=== PATIENT | female | born 1950 | race Caucasian/White ===

== ENCOUNTER 2020-02-08 11:15 | Outpatient (CLI) | payer MEDICARE, MEDICAID, SELFPAY ==
--- NOTE | 2020-02-08 11:28 | XR_ITS ---
WS: [id number] KUB, 02/08/2020 Clinical Data: ABDOMINAL PAIN RIGHT LOWER QUADRANT, RIGHT UPPER QUADRANT Comparison: None. Findings: No abnormal intraabdominal masses or calcifications are seen. There is no dilatated small bowel or ev idence of obstruction. The bladder appears to be compressed by a pelvic mass. There is degenerative change of the lumbar spi ne with a levoscoliosis. XR/XR KUB [id number] Impression: 1. Probable pelvic mass and recommend pelvic ultrasound. 2. Negative for intra-abdominal abnormalities.
== END 2020-02-08 11:16 | disposition home or self-care (01) ==
PROVIDERS: Family Provider Nurse Practitioner Family; PCP Nurse Practitioner Family; Visit Provider Nurse Practitioner Family
DX: R10.31 Right lower quadrant pain (principal); R10.11 Right upper quadrant pain
CPT/HCPCS: 74018

== ENCOUNTER → 2022-04-09 14:00 | Outpatient (BNVA) | payer MEDICARE, MEDICAID, SELFPAY | PROVIDERS: Family Provider Nurse Practitioner Family; PCP Nurse Practitioner Family; Visit Provider Clinical Nurse Specialist Adult Health | DX: I10 Essential (primary) hypertension (principal); E11.9 Type 2 diabetes mellitus without complications; E78.5 Hyperlipidemia, unspecified; R32 Unspecified urinary incontinence | CPT/HCPCS: 85025 ==

== ENCOUNTER → 2022-04-12 11:35 | Outpatient (BNVA) | payer MEDICARE, MEDICAID, SELFPAY | PROVIDERS: Family Provider Nurse Practitioner Family; PCP Clinical Nurse Specialist Adult Health; Visit Provider Clinical Nurse Specialist Adult Health | DX: E11.9 Type 2 diabetes mellitus without complications (principal); E78.5 Hyperlipidemia, unspecified; I10 Essential (primary) hypertension | CPT/HCPCS: 80053; 80061; 83036; 85025 ==

== ENCOUNTER → 2023-07-22 10:57 | Outpatient (BNVA) | payer MEDICARE, MEDICAID, SELFPAY | PROVIDERS: Family Provider Nurse Practitioner Family; PCP Clinical Nurse Specialist Adult Health; Visit Provider Clinical Nurse Specialist Adult Health | DX: E11.9 Type 2 diabetes mellitus without complications (principal) | CPT/HCPCS: 80053; 80061; 83036; 85025 ==

== ENCOUNTER → 2023-12-02 15:52 | Outpatient (BNVA) | payer MEDICAID, SELFPAY | PROVIDERS: Family Provider Nurse Practitioner Family; PCP Clinical Nurse Specialist Adult Health; Visit Provider Clinical Nurse Specialist Adult Health | DX: R32 Unspecified urinary incontinence (principal); I10 Essential (primary) hypertension | CPT/HCPCS: 80053; 81000; 83880; 85025; 87077; 87086; 87184 ==

== ENCOUNTER → 2024-01-07 15:06 | Outpatient (BNVA) | payer MEDICARE, MEDICAID, SELFPAY | PROVIDERS: Family Provider Nurse Practitioner Family; PCP Clinical Nurse Specialist Adult Health; Visit Provider Dermatology | DX: L72.11 Pilar cyst (principal); L72.0 Epidermal cyst; L81.4 Other melanin hyperpigmentation; L82.1 Other seborrheic keratosis | CPT/HCPCS: 99203 ==

== ENCOUNTER → 2024-03-03 12:59 | Outpatient (BNVA) | payer MEDICARE, MEDICAID, SELFPAY | PROVIDERS: Family Provider Nurse Practitioner Family; PCP Clinical Nurse Specialist Adult Health; Visit Provider Clinical Nurse Specialist Adult Health | DX: E11.9 Type 2 diabetes mellitus without complications (principal); N39.0 Urinary tract infection, site not specified; E78.5 Hyperlipidemia, unspecified | CPT/HCPCS: 80053; 80061; 81000; 83036; 85025 ==

== ENCOUNTER → 2024-03-04 08:18 | Outpatient (BNVA) | payer MEDICARE, MEDICAID, SELFPAY | PROVIDERS: Family Provider Nurse Practitioner Family; PCP Clinical Nurse Specialist Adult Health; Visit Provider Clinical Nurse Specialist Adult Health | DX: N39.0 Urinary tract infection, site not specified (principal) | CPT/HCPCS: 87086 ==

== ENCOUNTER → 2024-03-18 14:35 | Outpatient (BNVA) | payer MEDICARE, MEDICAID, SELFPAY | PROVIDERS: Family Provider Nurse Practitioner Family; PCP Clinical Nurse Specialist Adult Health; Visit Provider Dermatology | DX: D48.5 Neoplasm of uncertain behavior of skin (principal) | CPT/HCPCS: 11423; 13121 ==

== ENCOUNTER → 2024-06-02 15:10 | Outpatient (BNVA) | payer MEDICARE, MEDICAID, SELFPAY | PROVIDERS: Family Provider Nurse Practitioner Family; PCP Clinical Nurse Specialist Adult Health; Visit Provider Clinical Nurse Specialist Adult Health | DX: E11.9 Type 2 diabetes mellitus without complications (principal) | CPT/HCPCS: 85025 ==

== ENCOUNTER → 2024-07-29 12:23 | Outpatient (BNVA) | payer MEDICARE, MEDICAID, SELFPAY | PROVIDERS: Family Provider Nurse Practitioner Family; PCP Family Medicine; Visit Provider Family Medicine | DX: E11.9 Type 2 diabetes mellitus without complications (principal); I10 Essential (primary) hypertension | CPT/HCPCS: 80053; 83036; 83880; 84443; 84484; 85025; 85379; 86140 ==

== ENCOUNTER 2024-08-04 13:42 | Outpatient (CLI) | payer MEDICARE, MEDICAID, SELFPAY ==
--- NOTE | 2024-08-04 14:00 | CT_ITS ---
WS: [id number] CT CHEST ANGIOGRAPHY WITH REFORMATS HISTORY: hypoxia/ elevated D-dimer TECHNIQUE: Contiguous axial images are obtained through the chest during arterial injection of intrav enous contrast. Images are reconstructed to evaluate the pulmonary arteries. MIP imaging also reviewe d. All CT scans at [facility] use at least one of these dose optimization techniques: automat ed exposure control; mA and/or kV adjustment per patient size (includes targeted exams where dose is matched to clinical indication); or iterative reconstruction. CONTRAST: Omnipaque 350; 100 mL IV. DLP: 328.49 mGy.cm COMPARISON: None available. Good opacification of the pulmonary arteries. No pulmonary embolism identified. Normal size pulmonary artery. Advanced atherosclerotic plaque in a nondilated thoracic aorta. Calcified plaque with intima l thickening. Very mild LEFT heart enlargement. No RIGHT heart strain. No pericardial or pleural effu sions. Lung volumes are decreased due to poor inspiration. Focal increased opacification in the RIGHT middle lobe. No mass. The opacification in the RIGHT middle lobe is probably pneumonia. Overall mild inters titial thickening. Indeterminate but prominent mediastinal and hilar lymph nodes. RIGHT hilar lymph nodes measure up to 18 mm. No chest wall abnormality. No adrenal mass. Visualized upper abdomen is negative. Moderate LEFT curvature thoracic spine. CT/CT angio chest PE protcl [id number] IMPRESSION: 1. No pulmonary embolism. 2. Increased opacification RIGHT middle lobe. Most likely pneumonia. Recommend follow-up CT evaluation of the chest following treatment. 3. Overall diffuse interstitial thickening and. In part this is due to poor in spiratory effort but superimposed mild pulmonary edema may appear similar. 4. Indeterminate, probably reactive mediastinal and hilar lymph nodes. Lymph n odes can be evaluated during short-term follow-up to reevaluate the RIGHT middl e lobe pneumonia. Recommend follow-up chest CT with IV contrast after treatment in 6 to 8 weeks.
[2024-08-04] MEDS: iohexol 350 mg/mL 500 mL Btl (per mL) IV (14:29)
== END 2024-08-04 13:43 | disposition home or self-care (01) ==
LOC: RAD 13:44
PROVIDERS: Family Provider Nurse Practitioner Family; PCP Family Medicine; Visit Provider Family Medicine
DX: R91.8 Other nonspecific abnormal finding of lung field (principal); R59.0 Localized enlarged lymph nodes; R09.02 Hypoxemia
CPT/HCPCS: 71275

== ENCOUNTER 2024-08-05 14:53 | Emergency (ER) | payer MEDICARE, MEDICAID, SELFPAY ==
[2024-08-05] VITALS (9 sets, daily range): BP systolic 144–174; BP diastolic 70–92; PULSE 72–116; RESP 16–22; O2SAT 91–96; BMI 34.9
--- NOTE | 2024-08-05 15:04 | CTR_ITS ---
PROCEDURE INFORMATION: Exam: CTA Head With Contrast, Arteriography Exam date and time: 08/05/2024 3:46 PM Age: 73 years old Clinical indication: Weakness; Additional info: Fall/unk if hit head/hx of strokes TECHNIQUE: Imaging protocol: Computed tomographic angiography of the head with contrast. Exam focused on the arteries. 3D rendering (Not supervised by radiologist): MIP and/or 3D reconstructed images were created by the technologist. Radiation optimization: All CT scans at this facility use at least one of these dose optimization techniques: automated exposure control; mA and/or kV adjustment per patient size (includes targeted exams where dose is matched to clinical indication); or iterative reconstruction. Contrast material: OMNIPAQUE 350; Contrast volume: 100 ml; Contrast route: INTRAVENOUS (IV); COMPARISON: CT head wo con* [id number] 08/05/2024 3:36 PM RADIATION DOSE METRICS: Total DLP (mGy-cm): 451.22 FINDINGS: ANTERIOR CIRCULATION: Right internal carotid artery: Intracranial segment is patent with no significant stenosis. No aneurysm. Atherosclerotic calcification of the right carotid siphon. Right middle cerebral artery: No occlusion or significant stenosis. No aneurysm. Right anterior cerebral artery: No occlusion or significant stenosis. No aneurysm. Left internal carotid artery: Intracranial segment is patent with no significant stenosis. No aneurysm. Atherosclerotic calcification of the left carotid siphon. Left middle cerebral artery: No occlusion or significant stenosis. No aneurysm. Left anterior cerebral artery: No occlusion or significant stenosis. No aneurysm. POSTERIOR CIRCULATION: Right vertebral artery: No occlusion or significant stenosis. No aneurysm. Left vertebral artery: No occlusion or significant stenosis. No aneurysm. Basilar artery: No occlusion or significant stenosis. No aneurysm. Right posterior cerebral artery: No occlusion or significant stenosis. No aneurysm. Left posterior cerebral artery: No occlusion or significant stenosis. No aneurysm. Brain: No intracranial hemorrhage. There is global parenchymal volume loss. Periventricular white matter hypoattenuation is nonspecific but most likely due to small vessel disease. No evidence of acute territorial infarct or cerebral edema. No mass effect or midline shift. Remote left MCA territory cortical infarct. Cerebral ventricles: Prominent ventricles likely secondary to volume loss. Bones/joints: Unremarkable. No acute fracture. Soft tissues: Unremarkable. PROCEDURE INFORMATION: Exam: CTA Neck With Contrast Exam date and time: 08/05/2024 3:46 PM Age: 73 years old Clinical indication: Weakness; Additional info: Fall/unk if hit head/hx of strokes TECHNIQUE: Imaging protocol: Computed tomographic angiography of the neck with contrast. Exam focused on the cervical segments of the vasculature. 3D rendering (Not supervised by radiologist): MIP and/or 3D reconstructed images were created by the technologist. Radiation optimization: All CT scans at this facility use at least one of these dose optimization techniques: automated exposure control; mA and/or kV adjustment per patient size (includes targeted exams where dose is matched to clinical indication); or iterative reconstruction. Contrast material: OMNIPAQUE 350; Contrast volume: 100 ml; Contrast route: INTRAVENOUS (IV); COMPARISON: CT angio chest PE protcl [id number] 08/04/2024 2:16 PM RADIATION DOSE METRICS: Total DLP (mGy-cm): 451.22 FINDINGS: Right common carotid artery: No stenosis. No dissection or occlusion. Right internal carotid artery: Calcified plaque in the proximal right ICA with mild stenosis. Right external carotid artery: No occlusion or stenosis of the origin. Left common carotid artery: No stenosis. No dissection or occlusion. Left internal carotid artery: Extensive calcified plaque in the proximal left ICA with stenosis most prominent in the distal bulb region, greater than 70%. Left external carotid artery: No occlusion or stenosis of the origin. Right vertebral artery: No stenosis. No dissection or occlusion. Left vertebral artery: No stenosis. No dissection or occlusion. Soft tissues: Normal. No significant soft tissue swelling. Bones/joints: [place] rightward mid cervical curvature. Other findings: Emphysema. CT/CT angio headneck* [id number] IMPRESSION: No acute intracranial findings. IMPRESSION: 1. Extensive calcified plaque in the proximal left ICA with stenosis most prominent in the distal bulb region, greater than 70%. 2. Calcified plaque in the proximal right ICA with mild stenosis. REFERENCES: NASCET CRITERIA. The degree of stenosis in the cervical segment of the internal carotid artery is based on NASCET criteria. Normal is no stenosis. Mild is less than 50% stenosis. Moderate is 50-69% stenosis. Severe is 70% to 99% stenosis. Total occlusion is no detectable patent lumen.
--- NOTE | 2024-08-05 15:05 | XR_ITS ---
WS: [id number] Portable AP upright chest, 08/05/2024 Clinical Data: weak, nausea Comparison: Portable chest, 03/31/2007. Findings: No nodules, masses or effusions are seen. The heart is normal. The pulmonary vascularity is not increased. No pneumonia or pneumothorax is seen. The aortic arch and descending thoracic aorta s how tortuosity and calcification. There is a levoscoliosis of the thoracic spine. XR/XR chest 1V portable [id number] Impression: Atherosclerosis.
--- NOTE | 2024-08-05 15:07 | ECG_ITS ---
[employer] Test Date: 2024-08-05 Pat Name: Bettina Darden Department: Room: Gender: Female Nip Wrapper: : 1950 Requested By: Viral Ryan Order Number: [id number] Vanda MD: Luzmaria Arvizu M.D. Measurements Intervals [place] Rate: 97 P: 66 SC: 174 QRS: 60 QRSD: 76 T: -3 QT: 334 QTc: 424 Interpretive Statements SINUS RHYTHM LOW QRS VOLTAGE IN PRECORDIAL LEADS [QRS DEFLECTION < 1.0 mV IN CHEST LEADS] NONSPECIFIC T-WAVE ABNORMALITY No previous ECG available for comparison Electronically Signed On 08-06-2024 21:21:20 [employer]OCIATE JAVA DEVELOPER by Luzmaria Arvizu M.D. [email or web address]
--- NOTE | 2024-08-05 15:07 | W.ED.SOB ---
HPI - SOB/Dyspnea General: Chief Complaint: Shortness of Breath/Dyspnea Stated Complaint: Fall- Gen weakness Time Seen by Provider: 08/05/24 14:56 Source: patient and EMS Mode of arrival: EMS Limitations: other (Patient poor historian) History of Present Illness: HPI Narrative: Patient is a 73-year-old female presenting from home for generalized weakness reportedly today. Patient is a poor historian overall, EMS is primary historian in this case. Patient reportedly was seen by [facility] found her to be next to the recliner on the ground, unknown exactly how long she was down though it is thought to be anywhere between 30 minutes and an hour. Patient is alert and oriented to herself and place, baseline she is reportedly disoriented to time. EMS notes patient has a history of multiple strokes, all of been recently. They also state patient was seen here yesterday to rule out pulmonary embolism, however there are no reports of this. She is on 3 L O2 at this time, and this is stated to be because of her PE workup yesterday. I do see clopidogrel in her med list as well as aspirin. Patient has no complaints at this time, however EMS stated that patient did have a couple episodes of vomiting with them, and there is an odor of vomit at this time in the emergency department. However there are no focal neurological deficits that are appreciated at this time, patient did not have any complaints of chest pain, shortness of breath, or headache/neurological changes. She states she does remember falling, did not hit her head, says that she was just too weak to get up. Review of systems overall however is unobtainable as she is poor historian. Patient has history of hypertension, hyperlipidemia, ischemic strokes, and type 2 diabetes. Onset (ago): hour(s) Known history of: diabetes Associated symptoms: Reports nausea and vomiting; Deny abdominal pain, chest pain, dizziness, fever(s) or palpitations Treatment prior to arrival: oxygen Related Data Home Medications Medication Instructions Recorded Confirmed acetaminophen 500 mg tablet 500 mg PO Q6H PRN Pain 04/09/22 08/05/24 (Tylenol Extra Strength) ascorbate calcium (vitamin C) 500 500 mg PO DAILY 04/09/22 08/05/24 mg tablet aspirin 81 mg tablet,delayed 81 mg PO DAILY 04/09/22 08/05/24 release (Adult Aspirin Regimen) cholecalciferol (vitamin D3) 10 10 mcg PO DAILY 04/09/22 08/05/24 mcg (400 unit) capsule vitamin E (dl, acetate) 45 mg (100 45 mg PO DAILY 04/09/22 08/05/24 unit) capsule Previous Rx's Medication Instructions Recorded diaper,brief,adult,disposable #120 ea 12/02/23 [place] [facility] [place] 4 hours on, 2 hours off #1 ea 12/06/23 Acapella flutter valve #1 ea 03/03/24 Oxygen at 4L per NC #1 ea 07/29/24 amlodipine 5 mg tablet 5 mg PO DAILY #30 tabs 07/29/24 atorvastatin 10 mg tablet 10 mg PO DAILY #30 tabs 07/29/24 clopidogrel 75 mg tablet 75 mg PO DAILY #30 tabs 07/29/24 hydrochlorothiazide 12.5 mg capsule 12.5 mg PO DAILY #30 caps 07/29/24 irbesartan 75 mg tablet 75 mg PO DAILY #30 tabs 07/29/24 metformin 500 mg tablet 500 mg PO DAILY #30 tabs 07/29/24 cefdinir 300 mg capsule 300 mg PO BID 10 days #20 caps 08/05/24 Allergies Allergy/AdvReac Type Severity Reaction Status Date / Time penicillin V Allergy Mild adr-hives Verified 06/02/24 14:39 Review of Systems General: Reports: Other (Review of systems limited from patient's poor history) Const: Reports: fatigue and malaise; Denies: fever(s) Card: Denies: chest pain or palpitations Resp: Denies: dyspnea GI: Reports: nausea and vomiting; Denies: abdominal pain or diarrhea Musc: Reports: muscle weakness; Denies: neck pain or back pain Neuro: Denies: headache(s), numbness in extremities, sensory changes, dizziness, Slurred speech present or seizure-like activity PFSH ED PFSH: Medical History Hypoventilation associated with obesity Hx of arterial ischemic stroke Urinary incontinence Scoliosis Type 2 diabetes mellitus Hyperlipidemia Essential (primary) hypertension Surgical History History of cholecystectomy Family History Denies family history of Clotting disorder Anesthesia complication Bleeding disorder Social History Smoking and tobacco/nicotine status: unknown if used tobacco/nicotine Alcohol intake: never Substance/Drug Use: never Physical Exam Const: COMMON NORMALS: no acute distress and no limitations GENERAL APPEARANCE: cooperative, comfortable and well developed ORIENTATION/CONSCIOUSNESS: Yes awake, Yes oriented to person and Yes oriented to place OTHER: Foul smell of emesis at time of examination, no focal neurological deficit HENMT: COMMON NORMALS: normocephalic, atraumatic and hearing grossly normal bilaterally HEAD & SCALP: normocephalic and atraumatic FACE & SINUS: normal facial exam OTHER: Face is symmetric, no facial droop Eye: COMMON NORMALS: Equal, round and reactive pupils present, EOMs intact bilaterally and conjunctivae normal CONJUNCTIVA: Yes conjunctivae normal PUPIL: Yes Equal, round and reactive pupils present OTHER: Eyes are tracking midline Neck/C-Spine: COMMON NORMALS: full ROM, supple and no JVD Resp: COMMON NORMALS: normal respiratory effort, No retractions, No use of accessory muscles and clear to auscultation bilaterally AUSCULTATION: clear to auscultation bilaterally Cardio: COMMON NORMALS: no JVD, regular rate, regular rhythm, No clicks present (Cardio), No murmurs present (Cardio) and No rub (Cardio) RATE: regular rate RHYTHM: regular rhythm GI: COMMON NORMALS: Normal to inspection, nondistended, normoactive bowel sounds present, Soft to palpation and non-tender INSPECTION: Yes central obesity AUSCULTATION: Yes normoactive bowel sounds PALPATION: Yes Soft to palpation RECTAL EXAM: deferred Extremity: COMMON NORMALS: normal to inspection, full ROM and capillary refill normal Neuro: COMMON NORMALS: CN's II-XII intact bilaterally, moves all extremities, no focal motor deficits and no sensory deficits noted SENSORIUM/ORIENTATION: Yes oriented to person, Yes oriented to place and Yes Orientation impaired (To time, chronic) MOTOR EXAM: 5/5 motor strength present throughout, Pronator motor function not present, no tremor noted, no asterixis, Motor fasciculations not present and Normal motor muscle tone present throughout Psych: COMMON NORMALS: mental status grossly normal and Normal thought process present THOUGHT PROCESS: Normal thought process present Skin: COMMON NORMALS: no rashes or lesions noted GENERAL SKIN EXAM: no rashes or lesions noted Course Vital Signs: Vital signs: Vital Signs Pulse Rate 88 08/05/24 19:37 Respiratory Rate 18 08/05/24 19:37 Blood Pressure 151/77 08/05/24 19:37 Pulse Oximetry 94 08/05/24 19:37 Oxygen Delivery Me thod Nasal Cannula 08/05/24 19:37 Oxygen Flow Rate 4 08/05/24 19:37 MDM - SOB/Dyspnea Medical Decision Making This patient brought in by ambulance after home health aide had called for patient being down next to recliner, reported downtime was between 30 minutes and an hour. Upon reviewing patient's charts, she had a CTA of her chest yesterday to rule out a PE, potential there was signs of pneumonia. She also saw her primary care a week ago and was started on 4 L of oxygen, due to hypoxia of unknown etiology. She presented here with a few episodes of vomiting with EMS, and had to give her Zofran through an IV. Her baseline troponin was elevated, her repeat was mildly decreased from this. She had a 5th generation troponin level drawn a week ago that was also elevated. She did not seem fluid overloaded on exam, did have an elevated BNP with primary care. She had a history of strokes, here a CT and CTA was obtained that did not demonstrate any acute bleed or thrombus, respectively. Chest x-ray showing atherosclerosis and no focal pneumonia. Urinalysis showed potentially a sign of infection that could explain her increased weakness, rest of her lab work baseline compared to prior. She has been on 3 to 4 L O2 here throughout the entirety of her stay, I spoke with hospitalist who states that no need for admission at this time with her being baseline with her breathing and lab workup. She has been at baseline mentation, is overall poor historian, and did denied to me any injuries with the fall, stating she just pulled herself to the ground. Her weakness could be explained by her urinalysis we will treat with antibiotics and have her closely follow-up with primary care and return with any new or worsening. Discussed this case with Dr. Verdin here in the ER. Lab Data 08/05/24 15:24 08/05/24 15:24 Labs/Radiology: Radiology Impressions Head/Neck CTA 08/05/24 15:04 IMPRESSION: No acute intracranial findings. IMPRESSION: 1. Extensive calcified plaque in the proximal left ICA with stenosis most prominent in the distal bulb region, greater than 70%. 2. Calcified plaque in the proximal right ICA with mild stenosis. REFERENCES: NASCET CRITERIA. The degree of stenosis in the cervical segment of the internal carotid artery is based on NASCET criteria. Normal is no stenosis. Mild is less than 50% stenosis. Moderate is 50-69% stenosis. Severe is 70% to 99% stenosis. Total occlusion is no detectable patent lumen. Chest X-Ray 08/05/24 15:05 Impression: Atherosclerosis. Laboratory Results WBC 6.24 10^3/uL (3.29-11.43) 08/05/24 15: RBC 6.59 10^6/uL (3.85-5.65) H 08/05/24 15: Hgb 11.70 g/dL (11.27-16.99) 08/05/24 15: Hct 44.9 % (36-47) 08/05/24 15: MCV 68.1 fl (85-98) L 08/05/24 15: MCH 17.8 pg (27-33) L 08/05/24 15:24 MCHC 26.1 g/dL (30-55) L 08/05/24 15:24 RDW 19.6 % (12.1-15.1) H 08/05/24 15: Plt Count 327 10^3/cmm (157-399) 08/05/24 15: MPV 9.6 fL (7.4-10.4) 08/05/24 15: Neut % (Auto) 67.9 % 08/05/24: Lymph % (Auto) 15.9 % 08/05/24 15: [place] % (Auto) 14.9 % 08/05/24 15: Eos % (Auto) 0.2 % 08/05/24 15: Baso % (Auto) 0.8 % 08/05/24 15: Neut # (Auto) 4.24 10^3/uL (1.8-7.7) 11/13/24 15:24 Lymph # (Auto) 1.0 10^3/uL (0.8-4.8) 08/05/24 15:24 [place] # (Auto) 0.9 10^3/uL (0.2-0.9) 08/05/24 15:24 Eos # (Auto) 0.0 10^3/uL (0.0-0.8) 08/05/24 15:24 Baso # (Auto) 0.1 10^3/uL (0.0-0.1) 08/05/24 15:24 Nucleated RBC % (auto) 0 % 08/05/24 15:24 Nucleated RBCs # 0.0 /100WBC 08/05/24 15:24 Sodium 142 mmol/L (136-145) 08/05/24 15:24 Potassium 3.3 mmol/L (3.5-5.1) L 08/05/24 15:24 Chloride 99 mmol/L (98-107) 08/05/24 15:24 Carbon Dioxide 31 mmol/L (22-29) H 08/05/24 15:24 Anion Gap 15.3 (5-19) 08/05/24 15:24 BUN 19 mg/dL (8-23) 08/05/24 15:24 Creatinine 0.6 mg/dL (0.5-0.9) 08/05/24 15:24 GFR Calculation Not Reportable 08/05/24 15:24 Glucose 132 mg/dL (65-115) H 08/05/24 15:24 POC Glucose 131 mg/dL (70-110) H 08/05/24 16:09 Calculated Osmolality 298 mOsm/kg (285-295) H 08/05/24 15:24 Lactic Acid 1.5 mmol/L (0.5-2.2) 08/05/24 15:24 Calcium 9.3 mg/dL (8.5-10.5) 08/05/24 15:24 Total Bilirubin 0.9 mg/dL (0.15-1.2) 08/05/24 15:24 AST 28 U/L (0-32) 08/05/24 15:24 ALT 15 U/L (0-33) 08/05/24 15:24 Alkaline Phosphatase 113 U/L (35-105) H 08/05/24 15:24 Creatine Kinase 62 U/L (26-192) 08/05/24 15:24 Troponin T Baseline 94 ng/L (0-10) H 08/05/24 15:24 Troponin T 120 Minute 89.40 ng/L (0-10) H 08/05/24 17:22 Delta Troponin T -4.60 ABS# (0-10) L 08/05/24 17:22 Total Protein 7.0 g/dL (6.6-8.7) 08/05/24 15:24 Albumin 3.9 g/dL (3.5-5.2) 08/05/24 15:24 Globulin 3.1 g/dL (1.3-4.6) 08/05/24 15:24 Urine Color Yellow (Yellow) 08/05/24 16:19 Urine Appearance Clear (CLEAR) 08/05/24 16:19 Urine pH 6.0 (5-7) 08/05/24 16:19 Ur Specific [place] 1.027 (1.005-1.030) 08/05/24 16:19 Urine Protein 1+ (Negative) A 08/05/24 16:19 Urine Glucose (UA) Negative (Normal) 08/05/24 16:19 Urine Ketones Trace (Negative) 08/05/24 16:19 Urine Blood Negative (Negative) 08/05/24 16:19 Urine Nitrate Positive (Negative) A 08/05/24 16:19 Urine Bilirubin Negative (Negative) 08/05/24 16:19 Urine Urobilinogen 1.0 mg/dL (Negative) 08/05/24 16:19 Ur Leukocyte Esterase Trace (Negative) A 08/05/24 16:19 Urine RBC 0-2 /hpf (0-2) 08/05/24 16:19 Urine WBC 0-5 /hpf (0-5) 08/05/24 16:19 Ur Squamous Epith Cells 0-5 /hpf (0-5) 08/05/24 16:19 Amorphous Sediment Not Reportable 08/05/24 16:19 Urine Bacteria 4+ /hpf (NONE) H 08/05/24 16:19 Hyaline Casts 0.81 /lpf 08/05/24 16:19 All radiology interpretation(s) finalized by discharge EKG Data EKG 1: I personally reviewed and interpreted this EKG as follows: EKG Interpretation Date: 08/05/24 EKG interpretation time: 15:07 Prior EKG tracings: not available for review Interpretation: 1507: NSR. Rate 97. No STEMI. Reviewed with physician. EKG 2: I personally reviewed and interpreted this EKG as follows: EKG Interpretation Date: 08/05/24 EKG interpretation time: 17:07 Prior EKG tracings: available for review Interpretation: 1707: NSR. Rate 93. No change from prior. No STEMI. Reviewed with physician. Discharge Plan Discharge Patient Disposition: Home Clinical Impression: Hypoxia, Acute UTI (urinary tract infection) Condition: Stable Prescriptions: New cefdinir 300 mg capsule 300 mg PO BID 10 Days Qty: 20 0RF No Action amlodipine 5 mg tablet 5 mg PO DAILY Qty: 30 11RF atorvastatin 10 mg tablet 10 mg PO DAILY Qty: 30 11RF clopidogrel 75 mg tablet 75 mg PO DAILY Qty: 30 11RF hydrochlorothiazide 12.5 mg capsule 12.5 mg PO DAILY Qty: 30 11RF irbesartan 75 mg tablet 75 mg PO DAILY Qty: 30 11RF metformin 500 mg tablet 500 mg PO DAILY Qty: 30 11RF (DME) Oxygen at 4L per NC See Rx Instructions .Route .MEDSUPPLY Qty: 1 0RF Rx Instructions: As directed aspirin [Adult Aspirin Regimen] 81 mg tablet,delayed release (DR/EC) 81 mg PO DAILY acetaminophen [Tylenol Extra Strength] 500 mg tablet 500 mg PO Q6H PRN (Reason: Pain) ascorbate calcium (vitamin C) 500 mg tablet 500 mg PO DAILY cholecalciferol (vitamin D3) 10 mcg (400 unit) capsule 10 mcg PO DAILY vitamin E (dl, acetate) 45 mg (100 unit) capsule 45 mg PO DAILY (DME) Depend Easy Fit Undergarments Misc See Rx Instructions .Route Qty: 120 5RF Rx Instructions: As directed (DME) Acapella flutter valve See Rx Instructions .Route .MEDSUPPLY Qty: 1 0RF Rx Instructions: Use TID X 10 times at a time As directed (DME) ANA hose 4 hours on, 2 hours off See Rx Instructions .Route .MEDSUPPLY Qty: 1 2RF Rx Instructions: As directed Discharge Orders: Discharge ED (Routine); Ordered 08/05/24 Ordered By: Viral Vega Referrals: Mehnaz Rosen FNP [Family Provider] - Liborio Borges MD [Primary Care Provider] - Patient Instructions: Urinary Tract Infection in Older Adults (ED) Activity Restrictions/Additional Instructions: Cefdinir as prescribed. Please continue using your oxygen at home. Close follow-up with primary care, and continue taking other medications as prescribed. Return with any new or worsening. Coding Level of Care Code ED Set Builder for Shadi Hummel
--- NOTE | 2024-08-05 15:10 | CTR_ITS ---
PROCEDURE INFORMATION: Exam: CT Head Without Contrast Exam date and time: 08/05/2024 3:36 PM Age: 73 years old Clinical indication: Other: Weakness TECHNIQUE: Imaging protocol: Computed tomography of the head without contrast. Radiation optimization: All CT scans at this facility use at least one of these dose optimization techniques: automated exposure control; mA and/or kV adjustment per patient size (includes targeted exams where dose is matched to clinical indication); or iterative reconstruction. COMPARISON: No relevant prior studies available. RADIATION DOSE METRICS: Total DLP (mGy-cm): 1042.18 FINDINGS: Brain: Extensive encephalomalacia on the left side. Cerebral ventricles: No ventriculomegaly. Paranasal sinuses: Visualized sinuses are unremarkable. No fluid levels. Mastoid air cells: Visualized mastoid air cells are well aerated. Bones: Unremarkable. No acute fracture. Soft tissues: Unremarkable. CT/CT head wo con* [id number] IMPRESSION: No acute intracranial pathology. 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
[2024-08-05 15:31] LABS: Basophils # 0.1 10^3/uL (0.0-0.1); Basophils % 0.8 %; Eosinophils % 0.2 %; Hematocrit 44.9 % (36-47); Lymphocytes % 15.9 %; Mean Corpuscular HGB Conc 26.1 g/dL (30-55); Mean Corpuscular Hemoglobin 17.8 pg (27-33); Mean Corpuscular Volume 68.1 fl (85-98); Mean Platelet Volume 9.6 fL (7.4-10.4); Monocytes # 0.9 10^3/uL (0.2-0.9); Monocytes % 14.9 %; Neutrophils # 4.24 10^3/uL (1.8-7.7); Neutrophils % 67.9 %; Nucleated Red Blood Cells % 0 %; Platelet Count 327 10^3/cmm (157-399); Red Blood Count 6.59 10^6/uL (3.85-5.65); Red Cell Distribution Width 19.6 % (12.1-15.1); White Blood Count 6.24 10^3/uL (3.29-11.43)
[2024-08-05] MEDS: ondansetron 2 mg/ML SDV 2 mL 4 MG IVP (15:41)
[2024-08-05 15:54] LABS: Troponin(5th) Baseline 94 ng/L (0-10)
[2024-08-05 15:55] LABS: Alanine Aminotransferase 15 U/L (0-33); Albumin Level 3.9 g/dL (3.5-5.2); Alkaline Phosphatase 113 U/L (35-105); Anion Gap 15.3 (5-19); Aspartate Amino Transferase 28 U/L (0-32); Blood Urea Nitrogen 19 mg/dL (8-23); Calcium 9.3 mg/dL (8.5-10.5); Carbon Dioxide 31 mmol/L (22-29); Chloride 99 mmol/L (98-107); Creatine Phosphokinase 62 U/L (26-192); Creatinine Clr Calc Pharmacy 69.3518; Globulin 3.1 g/dL (1.3-4.6); Glucose 132 mg/dL (65-115); Osmolality Calculated 298 mOsm/kg (285-295); Potassium 3.3 mmol/L (3.5-5.1); Sodium 142 mmol/L (136-145); Total Bilirubin 0.9 mg/dL (0.15-1.2)
[2024-08-05 15:56] LABS: Lactic Sepsis W/Reflex 1.5 mmol/L (0.5-2.2)
[2024-08-05] MEDS: iohexol 350 mg/mL 500 mL Btl (per mL) IV (15:57)
[2024-08-05 16:14] LABS: Glucose Point of Care 131 mg/dL (70-110)
[2024-08-05 17:02] LABS: Bilirubin Urine Negative (Negative); Blood Urine Negative (Negative); Glucose Urine UA Negative (Normal); Ketones Urine Trace (Negative); Leukocyte Esterase Urine Trace (Negative); Nitrate Urine Positive (Negative); Protein Urine 1+ (Negative); Specific Gravity, Urine 1.027 (1.005-1.030); Urine Appearance Clear (CLEAR); Urine Color Yellow (Yellow)
[2024-08-05 17:04] LABS: Add Urine Microscopic? YES; Bacteria Urine 4+ /hpf; Hyaline Casts Urine 0.81 /lpf; RBC Urine 0-2 /hpf (0-2); Squamous Epithelial Cell Urine 0-5 /hpf (0-5); WBC Urine 0-5 /hpf (0-5)
--- NOTE | 2024-08-05 17:06 | ECG_ITS ---
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 Measurements Intervals [place] Rate: 93 P: 63 CT: 175 QRS: 64 QRSD: 84 T: -1 QT: 345 QTc: 430 Interpretive Statements SINUS RHYTHM NONSPECIFIC T-WAVE ABNORMALITY Compared to ECG 08/05/2024 15:03:19 No significant changes Electronically Signed On 08-09-2024 20:50:19 DINKEY ENGINEER by Luzmaria Arvizu M.D. [email or web address]
[2024-08-05 17:11] LABS: Add Urine Culture? No
[2024-08-05] MEDS: cefTRIAXone 1,000 mg SDV 1000 MG IVP (17:24)
--- NOTE | 2024-08-05 21:06 | ECG_ITS ---
[facility] Date: 2024-08[facility]05 Pat Name: Bettina Darden Department: Room: Gender: Female Hand Alterations Seamstress: : 1950 Requested By: Viral Ryan Order Number: [id number] Vanda MD: Luzmaria Arvizu M.D. Measurements Intervals [place] Rate: 82 P: 65 [place]: 168 QRS: 63 QRSD: 86 T: 1 QT: 368 QTc: 431 Interpretive Statements SINUS RHYTHM NONSPECIFIC T-WAVE ABNORMALITY Compared to ECG 08/05/2024 17:01:01 No significant changes Electronically Signed On 08-09-2024 20:50:38 COLLISION REPAIRER by Luzmaria Arvizu M.D. [email or web address]
[2024-08-05 22:12] LABS: Troponin 5 6HR 80.62 ng/L (0-10); Troponin 5 6HR Delta -13.38 ng/L (0-12)
== END 2024-08-05 23:30 | disposition home or self-care (01) ==
PROVIDERS: Emergency Provider Physician Assistant; Family Provider Nurse Practitioner Family; PCP Family Medicine
DX: R09.02 Hypoxemia (principal); N39.0 Urinary tract infection, site not specified; Z79.02 Long term (current) use of antithrombotics/antiplatelets; Z79.84 Long term (current) use of oral hypoglycemic drugs; Z79.82 Long term (current) use of aspirin; Z86.73 Personal history of transient ischemic attack (TIA), and cerebral infarction without residual deficits; E11.9 Type 2 diabetes mellitus without complications; I10 Essential (primary) hypertension; E78.5 Hyperlipidemia, unspecified
CPT/HCPCS: 36416; 70450; 70496; 70498; 71045; 80053; 81001; 82550; 82962; 83605; 84484; 85025; 93005; 96374; 96375; 99285; J0696; J2405